=== PATIENT | male | born 2000 | race American Indian/Alaskan Native ===

== ENCOUNTER 2019-12-10 00:42 | Emergency (ER) | payer OTHER ==
[2019-12-10] MEDS ORDERED: cephALEXin 500 MG CAP PO ONE (04:07)
[2019-12-10] MEDS ORDERED: traMADol 50 MG TAB PO ONE (04:07)
--- NOTE | 2019-12-10 04:12 | Emergency Department Report ---
ED Lower Extremity HPI - General Chief Complaint: Extremity Injury, Lower Stated Complaint: POSS INSECT BITE Time Seen by Provider: 12/10/19 04:05 Source: patient Mode of arrival: Ambulatory Limitations: No Limitations - History of Present Illness Initial Comments: Mr. Main is a 19-year-old -[place] male who presents for right lower leg inset bite 2 days ago. Patient complains of itching burning mild redness. States he had an abscess with his brother expressed pus. He presents tonight for evaluation to ensure is not infected. There's been no fevers, there's been no chills, there's been no nausea /vomiting. Patient is an amateur over steady gait there is no leg swelling, numbness, or tingling. MD Complaint: other (insect bite ) Onset/Timin -: days(s) Injury: Leg: Right Type of Injury: other (insect bite) Place: home Severity: moderate Severity scale (0 -10): 3 Improves With: nothing Worsens With: movement, palpation Context: other (insect bite ) Associated Symptoms: other (erythema ) - Related Data Previous Rx's Medication Instructions Recorded Last Taken Type Ibuprofen [Motrin 800 MG tab] 800 mg PO Q8HR PRN #30 tablet 12/10/19 Unknown Rx cephALEXin [Keflex] 500 mg PO Q8HR 10 Days #30 cap 12/10/19 Unknown Rx diphenhydrAMINE [Benadryl CAP] 25 mg PO Q8HR PRN #30 capsule 12/10/19 Unknown Rx predniSONE [Deltasone] 40 mg PO QDAY 5 Days #10 tab 12/10/19 Unknown Rx Allergies Allergy/AdvReac Type Severity Reaction Status Date / Time No Known Allergies Allergy Verified 12/10/19 00:45 ED Review of Systems ROS: Stated complaint: POSS INSECT BITE Other details as noted in HPI Constitutional: denies: chills, fever Eyes: denies: eye pain, eye discharge, vision change ENT: denies: ear pain, throat pain Respiratory: denies: cough, shortness of breath, wheezing Cardiovascular: denies: chest pain, palpitations Endocrine: no symptoms reported Gastrointestinal: denies: abdominal pain, nausea, diarrhea Genitourinary: denies: urgency, dysuria Musculoskeletal: denies: back pain, joint swelling, arthralgia Skin: other (right lower leg erythema ) Neurological: denies: headache, weakness, paresthesias Psychiatric: denies: anxiety, depression Hematological/Lymphatic: denies: easy bleeding, easy bruising ED Past Medical Hx - Past Medical History Previous Medical History?: No - Surgical History Past Surgical History?: No - Social History Smoking Status: Never Smoker Substance Use Type: Marijuana - Medications Home Medications: Home Medications Medication Instructions Recorded Confirmed Last Taken Type Ibuprofen [Motrin 800 MG tab] 800 mg PO Q8HR PRN #30 tablet 12/10/19 Unknown Rx cephALEXin [Keflex] 500 mg PO Q8HR 10 Days #30 cap 12/10/19 Unknown Rx diphenhydrAMINE [Benadryl CAP] 25 mg PO Q8HR PRN #30 capsule 12/10/19 Unknown Rx predniSONE [Deltasone] 40 mg PO QDAY 5 Days #10 tab 12/10/19 Unknown Rx ED Physical Exam - General Limitations: No Limitations General appearance: alert, in no apparent distress - Head Head exam: Present: atraumatic, normocephalic - Eye Eye exam: Present: normal appearance - ENT ENT exam: Present: mucous membranes moist - Neck Neck exam: Present: normal inspection - Respiratory Respiratory exam: Present: normal lung sounds bilaterally. Absent: respiratory distress, wheezes, stridor, chest wall tenderness - Cardiovascular Cardiovascular Exam: Present: regular rate, normal rhythm. Absent: systolic murmur, diastolic murmur, rubs, gallop - GI/Abdominal GI/Abdominal exam: Present: soft, normal bowel sounds. Absent: bruit, hernia - Rectal Rectal exam: Present: deferred - Extremities Exam Extremities exam: Present: normal inspection - Back Exam Back exam: Present: normal inspection, full ROM. Absent: tenderness - Neurological Exam Neurological exam: Present: alert, oriented X3, CN II-XII intact, normal gait, abnormal gait, reflexes normal. Absent: motor sensory deficit - Psychiatric Psychiatric exam: Present: normal affect, normal mood - Skin Skin exam: Present: warm, dry, erythema (right post lower leg, no focal abscess, no drainage no fever ), urticaria. Absent: rash ED Lower Extremity MDM - Medical Decision Making This is mild Cellulitis, plan, keflex, ibuprofen, site care, follow up with pcp in 2-3 days . pt verbalized agreement and understanding of discharge plan. Critical care attestation.: If time is entered above; I have spent that time in minutes in the direct care of this critically ill patient, excluding procedure time. ED Disposition Clinical Impression: Cellulitis of leg, right Disposition: DC- TO HOME OR SELFCARE Is pt being admited?: No Does the pt Need Aspirin: No Condition: Stable Instructions: Cellulitis (ED) Prescriptions: diphenhydrAMINE [Benadryl CAP] 25 mg PO Q8HR PRN #30 capsule PRN Reason: itching predniSONE [Deltasone] 40 mg PO QDAY 5 Days #10 tab cephALEXin [Keflex] 500 mg PO Q8HR 10 Days #30 cap Ibuprofen [Motrin 800 MG tab] 800 mg PO Q8HR PRN #30 tablet PRN Reason: Pain , Severe (7-10) Referrals: [facility] [Outside] - 3-5 Days Forms: Work/School Release Form(ED) Time of Disposition: 04:18
[2019-12-10 04:29] VITALS: BP 112/77
== END 2019-12-10 04:27 | disposition home or self-care (01) ==
LOC: ED 00:42
DX: L03.115 Cellulitis of right lower limb (principal); F12.10 Cannabis abuse, uncomplicated
CPT/HCPCS: 99282

== ENCOUNTER 2019-12-12 00:42 | Emergency (ER) | payer OTHER ==
[2019-12-12 00:54] VITALS: BP 124/81
[2019-12-12] MEDS ORDERED: oxyCODONE /ACETAMINOPHEN 5-325MG TAB PO ONE (02:13)
[2019-12-12] MEDS ORDERED: KETOROLAC 30 MG/1 ML INJ IM ONE (02:13)
--- NOTE | 2019-12-12 02:18 | Emergency Department Report ---
ED General Adult HPI - General Chief complaint: Wound/Laceration Stated complaint: RT LEG INSECT BITE Time Seen by Provider: 12/12/19 01:56 Source: patient, family, RN notes reviewed, old records reviewed Mode of arrival: Ambulatory Limitations: No Limitations - History of Present Illness Initial comments: Patient is a 19-year-old gentleman, not known to this provider previously. He was seen at this department a few days ago for presumed right lower extremity cellulitis, and started empirically on pain medication, and antibiotics. He endorses compliance with the aforementioned. He presents to the ER today with his mother because the patient noticed a scab on his right posterior calf, scratched it off, and had some scant pus started to discharge. The patient's mother discussed this with some friends and family, who concerned about the possibility of a spider bite, and voiced the concern that the patient might need to have his pus evacuated. The patient denies headache, neck pain, chest pain, abdominal pain and shortness of breath. He is right posterior calf pain, which makes it difficult to walk, but it's basically the baseline. The patient does not think his redness has gotten worse. His swelling and discomfort have not really gotten worse. He endorses compliance with antibiotics. -: Gradual Location: right, lower extremity Quality: aching Consistency: constant Improves with: rest Worsens with: movement - Related Data Previous Rx's Medication Instructions Recorded Last Taken Type Ibuprofen [Motrin 800 MG tab] 800 mg PO Q8HR PRN #30 tablet 12/10/19 Unknown Rx cephALEXin [Keflex] 500 mg PO Q8HR 10 Days #30 cap 12/10/19 Unknown Rx diphenhydrAMINE [Benadryl CAP] 25 mg PO Q8HR PRN #30 capsule 12/10/19 Unknown Rx predniSONE [Deltasone] 40 mg PO QDAY 5 Days #10 tab 12/10/19 Unknown Rx Allergies Allergy/AdvReac Type Severity Reaction Status Date / Time No Known Allergies Allergy Verified 12/10/19 00:45 ED Review of Systems ROS: Stated complaint: RT LEG INSECT BITE Other details as noted in HPI Constitutional: denies: fever Musculoskeletal: myalgia. denies: back pain, joint swelling, arthralgia Skin: lesions ED Past Medical Hx - Past Medical History Previous Medical History?: No - Surgical History Past Surgical History?: No - Social History Smoking Status: Never Smoker Substance Use Type: Marijuana - Medications Home Medications: Home Medications Medication Instructions Recorded Confirmed Last Taken Type Ibuprofen [Motrin 800 MG tab] 800 mg PO Q8HR PRN #30 tablet 12/10/19 Unknown Rx cephALEXin [Keflex] 500 mg PO Q8HR 10 Days #30 cap 12/10/19 Unknown Rx diphenhydrAMINE [Benadryl CAP] 25 mg PO Q8HR PRN #30 capsule 12/10/19 Unknown Rx predniSONE [Deltasone] 40 mg PO QDAY 5 Days #10 tab 12/10/19 Unknown Rx ED Physical Exam - General Limitations: No Limitations General appearance: alert, in no apparent distress - Head Head exam: Present: atraumatic, normocephalic - Eye Eye exam: Present: normal appearance, EOMI. Absent: nystagmus - ENT ENT exam: Present: normal exam, normal orophraynx, mucous membranes moist, normal external ear exam - Neck Neck exam: Present: normal inspection, full ROM. Absent: tenderness, meningismus - Respiratory Respiratory exam: Present: normal lung sounds bilaterally. Absent: respiratory distress - Cardiovascular Cardiovascular Exam: Present: normal rhythm, tachycardia, normal heart sounds, other (heart rate 105 bpm). Absent: systolic murmur, diastolic murmur, rubs, gallop - GI/Abdominal GI/Abdominal exam: Present: soft. Absent: distended, tenderness, guarding, rebound, rigid, pulsatile mass - Rectal Rectal exam: Present: deferred - Extremities Exam Extremities exam: Present: full ROM, tenderness (on the right posterior calf, there is 4-5 cm of posterior erythema, with scant purulent discharge. There is no fluctuance. There is no crepitus. There is no streaking.), other (2+ pulses noted in the bilateral upper and lower extremities. There is no long bony tenderness. The pelvis is stable. The muscular compartments are soft. There is no palpable cord.) - Back Exam Back exam: Present: normal inspection. Absent: tenderness, CVA tenderness (R), paraspinal tenderness, vertebral tenderness - Neurological Exam Neurological exam: Present: alert, other (The extraocular movements are intact bilaterally. There is no facial droop. The tongue is midline. Phonating in normal sentences. Hearing is intact grossly. Walking with a steady gait. 5/5 strength with 4 extremities. Sensation intact to light touch in 4 extremities. Appropriate thought content. GCS 15.). Absent: motor sensory deficit - Psychiatric Psychiatric exam: Present: normal mood, anxious - Skin Skin exam: Present: warm, erythema ED Course Vital Signs 12/12/19 12/12/19 00:51 01:34 Temperature 98.7 F Pulse Rate 122 H 109 H Respiratory 18 18 Rate Blood Pressure 124/81 O2 Sat by Pulse 97 99 Oximetry ED Medical Decision Making - Lab Data Vital Signs 12/12/19 12/12/19 00:51 01:34 Temperature 98.7 F Pulse Rate 122 H 109 H Respiratory 18 18 Rate Blood Pressure 124/81 O2 Sat by Pulse 97 99 Oximetry - Medical Decision Making Torrential diagnosis, including but not limited to: Cellulitis, follow-up Assessment and plan: 19-year-old gentleman presenting with cellulitis, essentially the same as on a previous examination. There is scant purulent discharge noted. No fluctuance is noted. No evidence of compartment syndrome or myositis at this time. Tachycardia is reviewed and appreciated, the patient appears to be somewhat anxious. Reassurance provided to patient. Discussed need to continue antibiotics, warm compresses, wash with gentle soap and water. Explained to patient and family that at this point time, does not require incision and drainage, but he may require downstream. They have verbalized understanding. He'll be discharged with instructions to continue his outpatient medications, continue warm compresses, return if worse. Critical care attestation.: If time is entered above; I have spent that time in minutes in the direct care of this critically ill patient, excluding procedure time. ED Disposition Clinical Impression: Cellulitis of leg, right Disposition: -01 TO HOME OR SELFCARE Is pt being admited?: No Does the pt Need Aspirin: No Condition: Stable Additional Instructions: Weightbearing as tolerated with the right lower extremity. Continue outpatient pain medication and antibiotics that were recently prescribed for the patient. Avoid heavy lifting and strenuous physical activities. Apply warm compresses to the right lower extremity as often as as needed. Follow up for repeat checkup and evaluation within the next 3-5 days. It is possible but unlikely that patient will develop a large abscess, which would require incision and drainage. However at this point time, patient does not require incision and drainage. Return to emergency room right away with projectile vomiting, change in mental status, confusion, inability to tolerate liquid feeds, new, worsening or different symptoms not present on initial emergency room evaluation. Referrals: KASIA SOLARES MD [Staff Physician] - 3-5 Days [facility] [Provider Group] - 3-5 Days [facility] [Provider Group] - 3-5 Days Forms: Work/School Release Form(ED)
== END 2019-12-12 02:34 | disposition home or self-care (01) ==
LOC: ED 00:42
DX: L03.115 Cellulitis of right lower limb (principal); F12.10 Cannabis abuse, uncomplicated; Z79.1 Long term (current) use of non-steroidal anti-inflammatories (NSAID); Z79.899 Other long term (current) drug therapy
CPT/HCPCS: 96372; 99283; J1885